=== PATIENT | female | born 1955 | race Caucasian/White ===

== ENCOUNTER 2017-01-25 15:27 | Emergency (ER) | payer OTHER ==
[~2017-01-25] VITALS: Wt 117.5 kg
[~2017-01-25 15:27] MED LIST: ALBU8.5H3 INH; ASPI-535 PO; ATEN-51 PO; ATOR80TA75 PO; HYDR-3504 PO; ISOS30TA PO; LORA10TA3 PO; LOSA1TAB20 PO; NITR0.4T6 SL; OMEP20CA16 PO; SYN2 PO
[2017-01-25] MEDS ORDERED: ASPIRIN 325 MG TAB PO STA (16:55)
[2017-01-25 17:09] LABS: ADD SCAN DIFF NO
[2017-01-25 17:11] LABS: BASOPHILS % 0.3 % (0.0-2.0); EOSINOPHILS # 0.5 10^3/ul (0.0-0.5); EOSINOPHILS % 3.3 % (0.0-7.0); HEMOGLOBIN 12.5 g/dl (12.0-16.0); LYMPHOCYTES # 2.9 10^3/ul (0.8-2.9); LYMPHOCYTES % 20.9 % (15.0-51.0); MEAN CORPUSCULAR HEMOGLOBIN 28.5 pg (29.0-33.0); MEAN CORPUSCULAR HGB CONC 32.9 g/dl (32.0-37.0); MEAN CORPUSCULAR VOLUME 86.6 fl (82.0-101.0); MEAN PLATELET VOLUME 10.4 fl (7.4-10.4); MONOCYTES % 6.8 % (0.0-11.0); NEUTROPHIL # 9.6 10^3/ul (1.6-7.5); NEUTROPHILS % 68.3 % (39.0-77.0); PLATELET COUNT 392 10^3/UL (140-415); RED BLOOD COUNT 4.39 10^6/ul (4.20-5.40); RED CELL DISTRIBUTION WIDTH 14.8 % (11.5-14.5)
[2017-01-25] MEDS ORDERED: METF500T4 PO (17:12)
[2017-01-25] MEDS ORDERED: LEVO150T67 PO (17:12)
[2017-01-25] MEDS ORDERED: METO50TA16 PO (17:13)
[2017-01-25] MEDS ORDERED: ASPI-664 PO (17:13)
[2017-01-25] MEDS ORDERED: LORA10TA3 PO (17:14)
[2017-01-25] MEDS ORDERED: FLUT16SP17 NASAL (17:14)
[2017-01-25] MEDS ORDERED: OMEP20CA16 PO (17:15)
[2017-01-25] MEDS ORDERED: CHOL100062 PO (17:15)
[2017-01-25] MEDS ORDERED: ATOR80TA75 PO (17:16)
[2017-01-25] MEDS ORDERED: LOSA1TAB20 PO (17:18)
[2017-01-25 17:26] LABS: INR 0.95; PROTIME 12.7 Sec (12.2-14.2)
[2017-01-25 17:27] LABS: PARTIAL THROMBOPLASTIN TIME 27.3 Sec (25.0-35.0)
[2017-01-25 17:30] LABS: CHLORIDE 97 mmol/L (97-110); POTASSIUM 3.7 mmol/L (3.5-5.1); SODIUM 138 mmol/L (135-144)
[2017-01-25 17:33] LABS: ANION GAP 16 (8-16); BLOOD UREA NITROGEN 12 mg/dl (7-20); CARBON DIOXIDE 29 mmol/L (21-31); CREATININE 0.79 mg/dl (0.44-1.00); GLUCOSE 108 mg/dl (70-220)
[2017-01-25 17:34] LABS: CALCIUM 8.7 mg/dl (8.4-10.2)
[2017-01-25 17:42] LABS: B-TYPE NATRIURETIC PEPTIDE 436 PG/ML (0-125)
--- NOTE | 2017-01-25 17:45 | RADRPT ---
PROCEDURE: XR Chest. CLINICAL INDICATION: Dyspnea TECHNIQUE: Single frontal chest x-ray. COMPARISON: 04/28/2016 FINDINGS: No acute infiltrate, pleural effusion or pneumothorax is identified. There is stable mild cardiomeg baudilio and mild pulmonary vascular congestion. Left-sided dual lead pacemaker remains in place. The o sseous structures are unremarkable. IMPRESSION: 1. Stable mild cardiomegaly and mild pulmonary vascular congestion. 2. No significant interval change. RPTAT: HH .Sam Park MD, Date Time Electronically viewed and signed by .Sam Park MD, on 01/25/2017 17:44 .R/
[2017-01-25 17:52] LABS: TROPONIN-I < 0.012 ng/ml (0.00-0.12)
--- NOTE | 2017-01-25 18:06 | RADRPT ---
PROCEDURE: CT brain without contrast CLINICAL INDICATION: Facial tingling. Numbness TECHNIQUE: A CT of the brain was performed utilizing axial sections from the skull base through th e vertex without contrast. Sagittal and coronal images were also reformatted. The exam CTDIvol = 40. 46 mGy and DLP = 720.23 mGy-cm. COMPARISON: None available FINDINGS: No acute intracranial hemorrhage is identified. There is no mass effect or midline shift. No extra -axial fluid collection is seen. The ventricles and sulci are within normal limits for size and con figuration for the patient's provided age of 61 years. The density of the brain is within normal li mits. Ford-white differentiation is preserved. The osseous structures are unremarkable. The mastoid air cells and visualized paranasal sinuses are clear. RPTAT:HJJR IMPRESSION: Unremarkable noncontrast CT of the brain. Physician Suraj Date Time Electronically viewed and signed by Physician Suraj on 01/25/2017 18:06 /
[2017-01-25 19:06] LABS: ADD UMIC YES; URINE BILIRUBIN (Dip) NEGATIVE (NEGATIVE); URINE BLOOD (Dip) 1+ (NEGATIVE); URINE COLOR LT. YELLOW (YELLOW); URINE GLUCOSE (Dip) NEGATIVE (NEGATIVE); URINE KETONES (Dip) NEGATIVE (NEGATIVE); URINE LEUKOCYTE ESTERASE (Dip) NEGATIVE (NEGATIVE); URINE NITRITE (Dip) NEGATIVE (NEGATIVE); URINE TOTAL PROTEIN (Dip) NEGATIVE (NEGATIVE); URINE UROBILINOGEN (Dip) 0.2 E.U./dL (0.1-1.0)
--- NOTE | 2017-01-25 19:09 | ERD ---
ER Documentation Chief Complaint Date/Time DATE: 01/25/17 TIME: 19:04 Chief Complaint NUMBNESS ON ARMS/FACE, DIZZINESS, CHEST PAIN HPI This 61-year-old female presents to the emergency room with chest pain as well as tingling to her bilateral hands and face. She also has had some mild chest pain described as a substernal sharp pain. She did have a echocardiogram and stress testing 3 months ago that showed no problems. States that when she urinates she has a feeling as though she still has to go. Has had chills but denies fevers. Denies any focal area of weakness. ROS All systems reviewed and are negative except as per history of present illness. Medications Home Meds Active Scripts Ranitidine Hcl* (Zantac*) 150 Mg Tablet, 150 MG PO BID Y for EPIGASTRIC PAIN, # 30 TAB Prov:RIGOBERTO LI DO 01/25/17 Sulfamethoxazole/Trimethoprim* (Bactrim Ds* Tablet) 1 Each Tablet, 1 TAB PO BID , #6 TAB Prov:RIGOBERTO LI DO 01/25/17 Reported Medications Losartan-Hydrochlorothiazide (Losartan-HCTZ) 100-25 Mg Tab, 1 TAB PO DAILY, TAB 01/25/17 Atorvastatin* (Atorvastatin*) 80 Mg Tablet, 80 MG PO QHS, #30 TAB 01/25/17 Omeprazole* (Omeprazole*) 20 Mg Capsule.dr, 20 MG PO DAILY, #30 CAP 01/25/17 Cholecalciferol* (Vitamin D3*) 1,000 Unit Tablet, 3000 UNIT PO DAILY, TAB 01/25/17 Loratadine* (Loratadine*) 10 Mg Tablet, 10 MG PO DAILY, #30 TAB 01/25/17 Fluticasone Propionate* (Fluticasone Propionate* Nasal) 50 Mcg/[place] - 16 Gm [place].susp, 1 SPRAY NASAL BID, #1 BOTTLE TO EACH NOSTRIL 01/25/17 Aspirin* (Aspirin* EC) 81 Mg Tablet.dr, 81 MG PO DAILY, TAB 01/25/17 Metoprolol Succinate* (Toprol XL*) 50 Mg Tab.er.24h, 50 MG PO DAILY, #30 TAB 01/25/17 Metformin* (Glucophage*) 500 Mg Tab, 500 MG PO WITH LUNCH DINNER, #60 TAB 01/25/17 Levothyroxine Sodium* (Levothyroxine Sodium*) 150 Mcg Tablet, 150 MCG PO BEFORE BREAKFAST, #30 TAB 01/25/17 Discontinued Reported Medications Aspirin Ec (Aspir 81) 81 Mg Tablet.dr, 81 MG PO DAILY, TAB 06/20/14 Hydrocodone Bit-Acetaminophen (Hydrocodone-APAP) 10-325MG Tablet, 1 TAB PO Q12 Y for PAIN LEVEL 1-5, TAB 06/20/14 Losartan-Hydrochlorothiazide (Losartan-HCTZ) 100-25 Mg Tab, 1 TAB PO DAILY, TAB 06/20/14 Atenolol* (Atenolol*) 25 Mg Tablet, 25 MG PO DAILY, TAB 06/20/14 Loratadine* (Loratadine*) 10 Mg Tablet, 10 MG PO DAILY, TAB 06/20/14 Omeprazole* (Omeprazole*) 20 Mg Capsule.dr, 20 MG PO BEFORE MEALS, CAP 06/20/14 Nitroglycerin* (Nitroglycerin* SL) 0.4 Mg Tab.subl, 0.4 MG SL Q5MIN Y for CHEST PAIN, BOTTLE 06/20/14 Atorvastatin* (Atorvastatin*) 80 Mg Tablet, 80 MG PO HS, TAB 06/20/14 Levothyroxine Sodium* (Synthroid*) 200 Mcg Tablet, 200 MCG PO AC BREAKFAST, TAB 06/20/14 Discontinued Scripts Albuterol Sulfate* (Proair HFA*) 8.5 Gm Hfa.aer.ad, 2 PUFF INH Q4, #1 INHALER Prov:AAMDOU FRITZ DO 02/25/16 Isosorbide Mononitrate* (Imdur*) 30 Mg Tabsr, 30 MG PO DAILY, #30 BOTTLE Prov:KRANTHI MIGUEL MD 06/21/14 Allergies Allergies: Coded Allergies: No Known Allergy (Unverified , 01/25/17) PMhx/Soc History of Surgery: Yes (CHOLECYSTECTOMY) Anesthesia Reaction: No Hx Neurological Disorder: No Hx Respiratory Disorders: No Hx Cardiac Disorders: Yes (CAD,HTN,HYPERCHOLESTEROLEMIA.) Hx Psychiatric Problems: No Hx Miscellaneous Medical Probl: No Hx Alcohol Use: No Hx Substance Use: No Hx Tobacco Use: No Smoking Status: Never smoker Physical Exam Vitals Vital Signs Date Time Temp Pulse Resp B/P Pulse Ox O2 Delivery O2 Flow Rate FiO2 01/25/17 17:40 64 18 124/55 100 Room Air 01/25/17 17:22 Nasal Cannula 2 01/25/17 15:33 98.2 75 18 144/68 97 Physical Exam Const: [] Head: Atraumatic Eyes: Normal Conjunctiva ENT: Normal External Ears, Nose and Mouth. Neck: Full range of motion..~ No meningismus. Resp: Clear to auscultation bilaterally Cardio: Regular rate and rhythm, no murmurs Abd: Soft, non tender, non distended. Normal bowel sounds Skin: No petechiae or rashes Back: No midline or flank tenderness Ext: No cyanosis, or edema Neur: Awake and alert Psych: Normal Mood and Affect Result Diagram: 01/25/17 1655 01/25/17 1655 Results 24 hrs Laboratory Tests Test 01/25/17 16:55 01/25/17 18:32 White Blood Count 14.010^3/ul Red Blood Count 4.3910^6/ul Hemoglobin 12.5g/dl Hematocrit 38.0% Mean Corpuscular Volume 86.6fl Mean Corpuscular Hemoglobin 28.5pg Mean Corpuscular Hemoglobin Concent 32.9g/dl Red Cell Distribution Width 14.8% Platelet Count 67603^3/UL Mean Platelet Volume 10.4fl Neutrophils % 68.3% Lymphocytes % 20.9% Monocytes % 6.8% Eosinophils % 3.3% Basophils % 0.3% Nucleated Red Blood Cells % 0.0/100WBC Neutrophils # 9.610^3/ul Lymphocytes # 2.910^3/ul Monocytes # 1.010^3/ul Eosinophils # 0.510^3/ul Basophils # 0.010^3/ul Nucleated Red Blood Cells # 0.010^3/ul Prothrombin Time 12.7Sec Prothrombin Time Ratio 1.0 INR International Normalized Ratio 0.95 Activated Partial Thromboplast Time 27.3Sec Sodium Level 138mmol/L Potassium Level 3.7mmol/L Chloride Level 97mmol/L Carbon Dioxide Level 29mmol/L Anion Gap 16 Blood Urea Nitrogen 12mg/dl Creatinine 0.79mg/dl Glucose Level 108mg/dl Calcium Level 8.7mg/dl Troponin I < 0.012ng/ml B-Type Natriuretic Peptide 436PG/ML Urine Color LT. YELLOW Urine Clarity CLEAR Urine pH 5.5 Urine Specific [place] 1.010 Urine Ketones NEGATIVE Urine Nitrite NEGATIVE Urine Bilirubin NEGATIVE Urine Urobilinogen 0.2 E.U./dL Urine Leukocyte Esterase NEGATIVE Urine Microscopic RBC 5-10/HPF Urine Microscopic WBC 2-5/HPF Urine Squamous Epithelial Cells MODERATE Urine Bacteria FEW Urine Hemoglobin 1+ Urine Glucose NEGATIVE% Urine Total Protein NEGATIVE Current Medications Medications (Trade) Dose Ordered Sig/Hortencia Route PRN Reason Start Time Stop Time Status Last Admin Dose Admin Aspirin 325 mg 325 mg ONCE STAT PO 01/25/17 16:55 01/25/17 16:59 DC 01/25/17 17:18 Ceftriaxone Sodium (Rocephin) 50 ml @ 100 mls/hr ONCE ONCE IVPB 01/25/17 20:00 01/25/17 20:29 Procedures/MDM Urinary tract infection . No signs of sepsis. Urinalysis is weakly positive for UTI however patient does have clinical symptoms of urinary tract infection. No signs of infection chest x-ray no abdominal pain. Chest pain since earlier this morning with negative troponin and nonischemic EKG. I doubt acute coronary syndrome currently. Patient's chest pain resolved the emergency room early on without treatment other than aspirin. She also has no tingling currently. I have very low suspicion for stroke as patient has bilateral symptoms. I am going to discharge her with Bactrim for 3 days as well as Zantac in case her because of nonischemic chest pain happens to be reflux. 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 No widened mediastinum, pneumothorax, no pulmonary edema, no infiltrates, no fractures Departure Diagnosis: Primary Impression: Chest pain Additional Impression: UTI (urinary tract infection) Condition: Stable RIGOBERTO LI DO January 25, 2017 19:09
[2017-01-25 19:18] LABS: BACTERIA,URINE FEW; SQUAMOUS EPITHELIAL CELL,UR MODERATE
[2017-01-25] MEDS ORDERED: SULF1TAB31 PO (19:34)
[2017-01-25] MEDS ORDERED: RANI150T9 PO (19:35)
[2017-01-25] MEDS ORDERED: SOD CHLORIDE 0.9% 500 ML IV ONE (20:00)
[2017-01-25] MEDS ORDERED: CEFTRIAXONE 1 GM/50 ML (PMX) 50 ML IVPB ONE (20:00)
[2017-01-25 20:53] VITALS: BP 113/62; PULSE 69; RESP 18; TEMP 98.2
== END 2017-01-25 20:56 | disposition home or self-care (01) ==
LOC: E/R 15:27
DX: R07.2 Precordial pain (principal); N39.0 Urinary tract infection, site not specified; I25.10 Atherosclerotic heart disease of native coronary artery without angina pectoris; I10 Essential (primary) hypertension; R07.9 Chest pain, unspecified; R06.00 Dyspnea, unspecified; Z79.82 Long term (current) use of aspirin
CPT/HCPCS: 70450; 71010; 80048; 81001; 83880; 84484; 85025; 85610; 85730; 87086; J0696; J7040; Z7610; 36415; 93005; 96374

== ENCOUNTER 2017-07-11 14:54 | Emergency (ER) | END 2017-07-11 17:33 | disposition home or self-care (01) | DX: E87.6 Hypokalemia (principal); R20.2 Paresthesia of skin; I10 Essential (primary) hypertension; I25.10 Atherosclerotic heart disease of native coronary artery without angina pectoris; E11.9 Type 2 diabetes mellitus without complications | CPT/HCPCS: 36415; 71010; 80053; 81001; 83690; 83880; 84484; 85025; 93005; Z7502; Z7610 ==

== ENCOUNTER 2018-04-07 22:35 | Inpatient (IN) | END 2018-04-09 11:12 | disposition home or self-care (01) | DRG 313 ==